=== PATIENT | female | born 1965 | race Hispanic/Latino ===

== ENCOUNTER 2023-07-09 08:18 | Outpatient (CLI) | payer OTHER | END 2023-07-09 08:19 | disposition home or self-care (01) | LOC: BICMAMMO 08:18 | PROVIDERS: ATTEND Nurse Practitioner Family | DX: Z12.31 Encounter for screening mammogram for malignant neoplasm of breast (principal); Z80.3 Family history of malignant neoplasm of breast | CPT/HCPCS: 77067 ==